=== PATIENT | female | born 1975 | race Caucasian/White ===

== ENCOUNTER 2018-05-30 15:59 | Emergency (ER) | payer OTHER, MEDICAID ==
[~2018-05-30] VITALS: Ht 167.6 cm; Wt 102.0 kg
[2018-05-30 16:55] LABS: BASOPHILS # (AUTO) 0.14 x10^3/uL (0-0.1); BASOPHILS % (AUTO) 2 % (0-1); EOSINOPHILS # (AUTO) 0.06 x10^3/uL (0-0.4); EOSINOPHILS % (AUTO) 1 % (1-7); LYMPHOCYTES # (AUTO) 1.05 x10^3/uL (1-3.4); LYMPHOCYTES % (AUTO) 17 % (22-44); MD NO; MEAN CORPUSCULAR HEMOGLOBIN 31.1 pg (27.0-34.8); MEAN CORPUSCULAR HGB CONC 33.8 g/dL (32.4-35.8); MEAN PLATELET VOLUME 7.2 fL (7.4-10.4); MONOCYTES # (AUTO) 0.41 x10^3/uL (0.2-0.8); MONOCYTES % (AUTO) 6 % (2-9); NEUTROPHILS # (AUTO) 4.72 x10^3/uL (1.8-6.8); NEUTROPHILS % (AUTO) 74 % (42-75); PLATELET COUNT 306 x10^3/uL (130-400); RED BLOOD COUNT 3.78 x10^6/uL (3.82-5.3); RED CELL DISTRIBUTION WIDTH 13.3 % (9.6-15.2)
[2018-05-30 16:56] LABS: MICROSCOPIC NOT IND
[2018-05-30 16:57] LABS: ALANINE AMINOTRANSFERASE 43 U/L (12-78); ALBUMIN 3.4 g/dL (3.4-5.0); ANION GAP 7 mmol/L (5-15); CALCIUM 7.7 mg/dL (8.5-10.1); CHLORIDE 112 mmol/L (98-107); CREATININE 0.78 mg/dL (0.55-1.02)
[2018-05-30 16:59] LABS: CULTURE INDICATED? NO
[2018-05-30] MEDS ORDERED: KETOROLAC 30 MG/1 ML IM ONE (17:00)
[2018-05-30 17:02] LABS: ALKALINE PHOSPHATASE 93 U/L (45-117); BILIRUBIN,TOTAL 0.3 mg/dL (0.2-1.0); TOTAL PROTEIN 6.9 g/dL (6.4-8.2)
[2018-05-30] MEDS ORDERED: KETOROLAC 30 MG/1 ML ONE (17:23)
[2018-05-30 17:35] LABS: HCT (SEDRATE) 34.8 % (34.6-47.8)
[2018-05-30 20:12] VITALS: BP 112/65
== END 2018-05-30 20:14 | disposition home or self-care (01) ==
LOC: ED 17:37
DX: M13.0 Polyarthritis, unspecified (principal)
CPT/HCPCS: 36415; 80053; 81003; 83880; 84550; 84703; 85025; 85651; 96372; 99284; J1885

== ENCOUNTER 2020-11-02 23:14 | Emergency (ER) | payer MEDICAID, OTHER ==
[~2020-11-02] VITALS: Ht 167.6 cm; Wt 105.1 kg
--- NOTE | 2020-11-02 23:33 | NUR ---
INITIAL PT CONTACT. PT PRESENTS TO ED S/P GLF. PT STATES SHE FELL AT APPROX. 2100, STATES SHE STEPPED OFF THE SIDEWALK, BUT DIDN'T REALIZE HOW FAR THE DROP WAS AND MISSTEPPED AND FELL AND HIT HER HEAD ON RIGHT TEMPORAL SIDE WITHOUT LOC. NO BLOOD THINNER USE. PT HAS SMALL ABRASION ON RIGHT FOREHEAD. PT STATES SHE'S DIZZY AND THREW UP ONE TIME, STILL EXPERIENCING NAUSEA AT THIS TIME. PT SITTING UPRIGHT ON GURNEY, NADN, VSS. C-COLLAR PLACED IN TRIAGE. PT PROVIDED WARM BLANKET. CALL LIGHT AND PERSONAL BELONGINGS WITHIN REACH. ERP AT THE BEDSIDE.
[2020-11-02] MEDS ORDERED: ACETAMINOPHEN 500 MG TABLET ONE (23:36)
[2020-11-02] MEDS ORDERED: ONDANSETRON ODT 4 MG ONE (23:36)
--- NOTE | 2020-11-02 23:54 | NUR ---
PT TO IMAGING
[2020-11-03] MEDS ORDERED: ONDANSETRON ODT 4 MG PO ONE
[2020-11-03] MEDS ORDERED: ACETAMINOPHEN 500 MG TABLET PO ONE
[2020-11-03 00:29] VITALS: BP 131/70
== END 2020-11-03 00:54 | disposition home or self-care (01) ==
LOC: ED 11-03 00:09
DX: S06.0X0A Concussion without loss of consciousness, initial encounter (principal); R11.10 Vomiting, unspecified; M54.2 Cervicalgia; H53.149 Visual discomfort, unspecified; W01.0XXA Fall on same level from slipping, tripping and stumbling without subsequent striking against object, initial encounter; Y93.89 Activity, other specified; Y92.488 Other paved roadways as the place of occurrence of the external cause; Y99.8 Other external cause status
CPT/HCPCS: 70450; 72125; 99285; Q0162